=== PATIENT | female | born 1950 | race Caucasian/White ===

== ENCOUNTER 2019-04-24 09:12 | Inpatient (IN) | payer OTHER, BC ==
[2019-04-24] MEDS ORDERED: ACETAMINOPHEN 1000 MG/100 ML VIAL (NON FORMULARY) IVPB ONE ×2 (11:42→13:45)
[2019-04-24] MEDS ORDERED: PROPOFOL 20 ML ONE (11:45)
[2019-04-24] MEDS ORDERED: DEXTROSE 5%-0.45% SALINE 1,000 ML IV SCH (11:45)
[2019-04-24] MEDS ORDERED: IBUPROFEN 800 MG/8 ML IJ IVPB SCH (11:45)
[2019-04-24] MEDS ORDERED: SUCCINYLCHOLINE CHLORIDE 200 MG/10 ML SYRINGE ONE (11:57)
[2019-04-24] MEDS ORDERED: ceFAZolin SODIUM 1 GM VIAL ONE (12:00)
[2019-04-24] MEDS ORDERED: ceFAZolin SODIUM 1 GM VIAL IVPB ONE (12:05)
[2019-04-24] MEDS ORDERED: DEXAMETHASONE SOD PHOSPHATE 4 MG/1 ML VIAL ONE (12:07)
[2019-04-24] MEDS ORDERED: ONDANSETRON 4 MG/2 ML VIAL IVPUSH PRN (13:03)
[2019-04-24] MEDS ORDERED: ALBUTEROL SO4 0.083% IH SOL 2.5 MG/3 ML VIAL.NEB. NEB ONE ×2 (13:04→13:15)
[2019-04-24] MEDS ORDERED: ALBUTEROL SO4 0.083% IH SOL 2.5 MG/3 ML VIAL.NEB. NEB PRN (13:04)
[2019-04-24] MEDS ORDERED: ACETAMINOPHEN INJECTION 100 ML IVPB ONE (13:45)
--- NOTE | 2019-04-24 16:02 | HP ---
CHIEF COMPLAINT: hypoxia PCP: HISTORY OF PRESENT ILLNESS: Patient is a 69 year old female with past medical history of HTN, DM, kidney stones and hypothyroidism, presented today after found to be hypoxic and tachycardic post-operatively. Patient underwent cystoscopy, laser lithotripsy and stent placement today, where it was reported that patient had difficult intubation, and even while intubated, patient was saturating at the low 90s. Post-operatively, patient was still noted to be hypoxic at 85% and tachycardic at the 110s. Patient was given albuterol neb x1 and placed on 3L NC. Patient denies any recent illness. Denies fevers, chills, headache, chest pain, SOB, palpitations, abdominal pain, diarrhea, urinary symptoms. Recent Travel:denies PAST MEDICAL HISTORY: HTN DM Hypothyroidism PAST SURGICAL HISTORY: Cholecystectomy Left breast Lumpectomy Social History: Smoking:previous smoker, around 2-3 sticks per day >40 years, quit 12 years ago Alcohol:denies Drugs: denies Allergies No Known Drug Allergies Allergy (Verified 04/23/19 15:15) SEASONAL Allergy (Uncoded 04/23/19 15:13) HOME MEDICATIONS: Home Medications Medication Instructions Recorded Clindamycin 1% Gel [Cleocin *Gel*] 1 applic TP DAILY 04/23/19 Fluticasone Furoate [Arnuity 50 mcg IH DAILY 04/23/19 Ellipta] Latanoprost 0.005% Eye Drops 1 drop OU HS 04/23/19 [Xalatan 0.005% Eye Drops -] Levothyroxine [Synthroid -] 100 mcg PO DAILY 04/23/19 Lisinopril 20 mg PO DAILY 04/23/19 Metformin HCl [Glucophage] 1,000 mg PO BID 04/23/19 Metoprolol Tartrate 50 mg PO BID 04/23/19 Polyvinyl Alcohol [Tears Again] 15 ml OP DAILY 04/23/19 REVIEW OF SYSTEMS CONSTITUTIONAL: Absent: fever, chills, diaphoresis, generalized weakness, malaise, loss of appetite, weight change HEENT: Absent: rhinorrhea, nasal congestion, throat pain, throat swelling, difficulty swallowing, mouth swelling, ear pain, eye pain, visual changes CARDIOVASCULAR: Absent: chest pain, syncope, palpitations, irregular heart rate, lightheadedness, peripheral edema RESPIRATORY: Absent: cough, shortness of breath, dyspnea with exertion, orthopnea, wheezing, stridor, hemoptysis GASTROINTESTINAL: Absent: abdominal pain, abdominal distension, nausea, vomiting, diarrhea, constipation, melena, hematochezia GENITOURINARY: Absent: dysuria, frequency, urgency, hesitancy, hematuria, flank pain, genital pain MUSCULOSKELETAL: Absent: myalgia, arthralgia, joint swelling, back pain, neck pain SKIN: Absent: rash, itching, pallor HEMATOLOGIC/IMMUNOLOGIC: Absent: easy bleeding, easy bruising, lymphadenopathy, frequent infections ENDOCRINE: Absent: unexplained weight gain, unexplained weight loss, heat intolerance, cold intolerance NEUROLOGIC: Absent: headache, focal weakness or paresthesias, dizziness, unsteady gait, seizure, mental status changes, bladder or bowel incontinence PSYCHIATRIC: Absent: anxiety, depression, suicidal or homicidal ideation, hallucinations. PHYSICAL EXAMINATION Vital Signs - 24 hr 04/24/19 04/24/19 04/24/19 09:51 12:59 13:15 Temperature 97.8 F 98.0 F Pulse Rate 101 H 117 H 120 H Respiratory 14 20 20 Rate Blood Pressure 155/87 128/67 141/66 O2 Sat by Pulse 97 88 L 88 L Oximetry (%) 04/24/19 04/24/19 04/24/19 13:30 13:45 14:00 Temperature Pulse Rate 118 H 113 H 113 H Respiratory 20 20 20 Rate Blood Pressure 128/67 145/68 129/69 O2 Sat by Pulse 90 L 91 L 92 L Oximetry (%) 04/24/19 14:15 Temperature Pulse Rate 111 H Respiratory 16 Rate Blood Pressure 127/65 O2 Sat by Pulse 91 L Oximetry (%) GENERAL: Awake, alert, and fully oriented, on 3L NC HEAD: Normal with no signs of trauma. EYES: PERRLA, EOMI, sclera anicteric, conjunctiva clear. EARS, NOSE, THROAT: Moist mucous membranes. NECK: Normal range of motion, supple LUNGS: +scattered rhonchi bilaterally, +bibasilar crackles HEART: Regular rate and rhythm, normal S1 and S2 ABDOMEN: Soft, nontender, not distended, normoactive bowel sounds. LOWER EXTREMITIES: 2+ pulses, warm, well-perfused. No peripheral edema. NEUROLOGICAL: Cranial nerves II-XII intact. Normal speech. PSYCHIATRIC: Cooperative. Good eye contact. Appropriate mood and affect. SKIN: Warm, dry, normal turgor. Laboratory Results - last 24 hr 04/24/19 04/24/19 09:37 15:23 POC Glucometer 165 211 ASSESSMENT/PLAN: Patient is a 69 year old female with past medical history of HTN, DM, kidney stones and hypothyroidism, presented today after found to be hypoxic and tachycardic post-operatively. #Hypoxia and Tachycardia -unclear etiology at this time, all labs pending -may be 2/2 COPD vs CHF vs PE vs ?aspiration pneumonia -CXR done -will start duonebs standing and PRN -BNP pending -will order echo to assess LV function -Trop to r/o ACS -D-dimer, to r/o PE -Pulmonology (Dr. Mobley) consulted. #Nephrolithiasis -s/p cystoscopy, laser lithotripsy and stent placement, POD 0 -Urology on board -pain control with ibuprofen #HTN -Continue home Lopressor 50mg bid and Lisinopril 20mg daily #DM -Hold home metformin -Insulin sliding scale implemented -BGM ACHS #Hypothyroidism -Continue Synthroid 100mcg daily #FEN -Not on any standing fluids -Routine bmp monitoring -Diabetic diet #Prophylaxis -SCDs #Disposition -full code admit to med surg Visit type - Emergency Visit Emergency Visit: Yes ED Registration Date: 04/24/19 Care time: The patient presented to the Emergency Department on the above date and was hospitalized for further evaluation of their emergent condition. - New Patient This patient is new to me today: Yes Date on this admission: 04/25/19 - Critical Care Critical Care patient: No ATTENDING PHYSICIAN STATEMENT I saw and evaluated the patient. I reviewed the resident's note and discussed the case with the resident. I agree with the resident's findings and plan as documented. SUBJECTIVE: OBJECTIVE: ASSESSMENT AND PLAN:
[2019-04-24] MEDS ORDERED: methylPREDNISolone NA SUCC 40 MG/1 ML VIAL ONE (17:00)
[2019-04-24] MEDS ORDERED: methylPREDNISolone NA SUCC 40 MG/1 ML VIAL IVPUSH ONE (17:09)
[2019-04-24 17:44] LABS: BASO % 0.4 % (0-2.0); HEMATOCRIT 37.9 % (32.4-45.2); LYMPH % 3.4 % (8-40); MCH 26.9 pg (25.7-33.7); MCHC 31.7 g/dl (32.0-36.0); MEAN CELL VOLUME 84.8 fl (80-96); MONO % 1.7 % (3.8-10.2); NEUT % 94.5 % (42.8-82.8); PLATELET COUNT 277 K/MM3 (134-434); RBC 4.47 M/mm3 (3.60-5.2); RDW 15.1 % (11.6-15.6); WHITE BLOOD COUNT 20.2 K/mm3 (4.0-10.0)
[2019-04-24] MEDS ORDERED: FUROSEMIDE 40 MG/4 ML INJECTABLE VIAL IVPUSH ONE (17:49)
[2019-04-24 18:02] LABS: INR 1.03 (0.83-1.09); PROTHROMBIN TIME (PATIENT) 12.1 SEC (9.7-13.0)
[2019-04-24 18:05] LABS: ACTIVATED PTT 29.9 SECONDS (25.2-36.5)
[2019-04-24] MEDS: INSULIN SLIDING SCALE (NOVOLOG) 1 VIAL SQ SCH ×2 (18:10→21:33)
[2019-04-24 18:31] LABS: ALBUMIN 3.6 g/dl (3.4-5.0); ALK PHOS 105 U/L (45-117); ANION GAP 11 MMOL/L (8-16); BILIRUBIN,TOTAL 0.2 mg/dL (0.2-1); BLOOD UREA NITROGEN 21.1 mg/dL (7-18); CALCIUM 9.2 mg/dL (8.5-10.1); CHLORIDE 104 mmol/L (98-107); CO2 22 mmol/L (21-32); CREATININE 1.9 mg/dL (0.55-1.3); GLUCOSE,RANDOM 297 mg/dL (74-106); MAGNESIUM 1.8 mg/dL (1.8-2.4); POTASSIUM 4.2 mmol/L (3.5-5.1); SGOT/AST 15 U/L (15-37); SGPT/ALT 16 U/L (13-61); SODIUM 137 mmol/L (136-145); TOT PROT 8.5 g/dl (6.4-8.2)
[2019-04-24] MEDS ORDERED: HEPARIN NA (PORCINE) 5,000 UNITS/ML 1ML VIAL IVPUSH PRN ×2 (18:55)
[2019-04-24] MEDS ORDERED: HEPARIN INFUSION - 25,000 UNITS/500 ML INFUS.BAG IV SCH (19:00)
[2019-04-24 19:06] LABS: PLATELET ESTIMATE ADEQUATE
--- NOTE | 2019-04-24 19:37 | PN ---
Teaching Attending Note Name of Resident: Magui Werner ATTENDING PHYSICIAN STATEMENT I saw and evaluated the patient. I reviewed the resident's note and discussed the case with the resident. I agree with the resident's findings and plan as documented. SUBJECTIVE:Patient is a 69 year old female with past medical history of HTN, DM , kidney stones and hypothyroidism, presented today after found to be hypoxic and tachycardic post-operatively. Patient underwent cystoscopy, laser lithotripsy and stent placement today, where it was reported that patient had difficult intubation, and even while intubated, patient was saturating at the low 90s. Post-operatively, patient was still noted to be hypoxic at 85% and tachycardic at the 110s. Patient was given albuterol neb x1 and placed on 3L NC. Patient denies any recent illness. Denies fevers, chills, headache, chest pain, SOB, palpitations, abdominal pain, diarrhea, urinary symptoms. OBJECTIVE: appears comfoertable, nad, and sat, is in 90s on 3 L , dec to 80s after taking the oxygen off, heent , wnl, perrla , and eomi, cvs tachycardia, and s1/s2/0 chest ctab abd benign ext no c/c/e neuro non focal, ASSESSMENT AND PLAN: atient is a 69 year old female with past medical history of HTN, DM, kidney stones and hypothyroidism, presented today after found to be hypoxic and tachycardic post-operatively. #Hypoxia cxr shows the mild congestion, and no prior h/o chf, and also tachy cardia, cant do CTA bc of the high creatinine, start heparin drip, bc of high probability of the PE, and high D dimer, get vq scan, will give lasix, and also get echo, -unclear etiology at this time -will start duonebs standing and PRN -BNP -will order echo to assess LV function -D-dimer, r/o PE -Pulmonology (Dr. Mobley) consulted. Nephrolithiasis -s/p cystoscopy, laser lithotripsy and stent placement, POD 0 no bleeding reported, -Urology on board HTN -Continue home Lopressor 50mg bid and Lisinopril 20mg daily DM -Hold home metformin -Insulin sliding scale implemented -BGM ACHS Hypothyroidism -Continue Synthroid 100mcg daily
[2019-04-24] MEDS: ALBUTEROL SO4 2.5/IPRATROPIUM 0.5 INH SOL 3 ML VIAL.NEB. NEB SCH (20:06)
[2019-04-24] MEDS ORDERED: VANCOMYCIN 1 GM in D5W (PRE-DOCKED) 1,000 MG/250 ML IVPB ONE (20:57)
[2019-04-24] MEDS ORDERED: methylPREDNISolone NA SUCC 40 MG/1 ML VIAL IVPUSH SCH (21:00)
[2019-04-24] MEDS: METOPROLOL TARTRATE 50 MG TABLET (FP) PO SCH (21:21)
[2019-04-24] MEDS ORDERED: INSULIN (NOVOLOG) ASPART 100 UNITS/ML 10ML VIAL ONE (21:27)
[2019-04-24] MEDS ORDERED: cefTRIAXone SODIUM 1 GM VIAL ONE (22:15)
[2019-04-24] MEDS: CEFTRIAXONE 1 GM in DEXTROSE 5%-WATER - 50 ML IVPB SCH (22:15)
[2019-04-24] MEDS ORDERED: DEXTROSE 5%-WATER - 50 ML IVPB ONE (22:15)
[2019-04-24] MEDS: LATANOPROST 0.005% OPHTH SOLN 2.5ML BOTTLE OU SCH (22:35)
[2019-04-24] MEDS ORDERED: INSULIN (NOVOLOG) ASPART 100 UNITS/ML 10ML VIAL SQ ONE (23:33)
[2019-04-25] MEDS ORDERED: INSULIN (NOVOLOG) ASPART 100 UNITS/ML 10ML VIAL SQ ONE (01:06)
[2019-04-25] MEDS: INSULIN SLIDING SCALE (NOVOLOG) 1 VIAL SQ SCH ×4 (06:37→21:48)
[2019-04-25] MEDS ORDERED: LEVOTHYROXINE NA 100 MCG TABLET (FP) PO SCH (07:00)
[2019-04-25 07:15] LABS: BASO % 0.3 % (0-2.0); HEMOGLOBIN 11.7 GM/dL (10.7-15.3); LYMPH % 6.4 % (8-40); MCH 26.9 pg (25.7-33.7); MCHC 32.4 g/dl (32.0-36.0); MEAN CELL VOLUME 83.2 fl (80-96); MONO % 3.4 % (3.8-10.2); NEUT % 89.9 % (42.8-82.8); PLATELET COUNT 310 K/MM3 (134-434); RBC 4.33 M/mm3 (3.60-5.2); RDW 15.2 % (11.6-15.6); WHITE BLOOD COUNT 17.2 K/mm3 (4.0-10.0)
[2019-04-25] MEDS: ALBUTEROL SO4 2.5/IPRATROPIUM 0.5 INH SOL 3 ML VIAL.NEB. NEB SCH ×4 (08:00→20:00)
[2019-04-25 08:27] LABS: ALBUMIN 3.4 g/dl (3.4-5.0); BILIRUBIN,TOTAL 0.4 mg/dL (0.2-1); BLOOD UREA NITROGEN 30.2 mg/dL (7-18); CALCIUM 9.4 mg/dL (8.5-10.1); CREATININE 2.1 mg/dL (0.55-1.3); POTASSIUM 4.4 mmol/L (3.5-5.1); TOT PROT 8.4 g/dl (6.4-8.2)
[2019-04-25] MEDS: METOPROLOL TARTRATE 50 MG TABLET (FP) PO SCH ×2 (09:35→21:46)
[2019-04-25] MEDS ORDERED: LISINOPRIL 20 MG TABLET (FP) PO SCH (10:00)
--- NOTE | 2019-04-25 11:54 | EKG ---
Test Reason : Blood Pressure : / mmHG Vent. Rate : 109 BPM Atrial Rate : 109 BPM P-R Int : 204 ms QRS Dur : 090 ms QT Int : 320 ms P-R-T Axes : 059 001 033 degrees QTc Int : 430 ms SINUS TACHYCARDIA OTHERWISE NORMAL ECG NO PREVIOUS ECGS AVAILABLE Confirmed by FELIBERTO NEAL MD ([id number]) on 04/25/2019 11:53:55 AM Referred By: Franc Haines Confirmed By:FELIBERTO NEAL MD
--- NOTE | 2019-04-25 12:16 | OP ---
DATE OF OPERATION: 04/24/2019 PREOPERATIVE DIAGNOSIS: Right distal ureteral calculi and hydronephrosis. POSTOPERATIVE DIAGNOSIS: Right distal ureteral calculi and hydronephrosis. PROCEDURE: Cystoscopy, right retrograde pyelogram, right ureteroscopic laser lithotripsy and right ureteral stent placement. ANESTHESIA: General, Bartolome Sullivan, REF-DO SURGEON: Franc Haines MD ESTIMATED BLOOD LOSS: None. SPECIMENS: None. DRAINS: A 6 x 22 double-J ureteral stent on the right. FINDINGS: Large impacted stones in the intramural right ureter. PREOPERATIVE INDICATIONS: Patient is a 69-year-old female who presents with several weeks of right-sided flank pain. CT scan revealed multiple large obstructing stones in the very distal right ureter. She comes to the OR today for removal of the stones. OPERATION: The patient was brought to the OR, placed on the table in the supine position, given general anesthesia and IV antibiotics and placed in the modified lithotomy position. The groin was prepped and draped sterilely. Cystoscopy was performed. The urethra was normal. The bladder itself was unremarkable. The right UO was visualized. Attempts at passing a guidewire initially were difficult. However, passing a Sensor wire went easily. This was done under fluoroscopic guidance. A 10-Surinamese dual-lumen catheter was used to dilate the ureteral orifice and then a rigid ureteroscope was passed into the right distal ureter. There were several large stones as seen on the CAT scan impacted in the intramural ureter. Using the holmium laser fiber, most of the stones were broken up. The smaller stones were evacuated out. While the ureter remained intact without any injury, visibility did become difficult as the case proceeded. A retrograde pyelogram revealed no extravasation, but there was some proximal dilation as seen on the CAT scan. Over the remaining wire a 6 x 22 double-J ureteral stent was placed. One loop was seen in the upper pole of the kidney, other loop in the bladder. Bladder was emptied. The patient was woken up. FRANC HAINES M.D. [id number]
--- NOTE | 2019-04-25 13:38 | CONSULT ---
Consult Consult Specialty:: Nephrology Reason for Consultation:: CISCO - History of Present Illness Chief Complaint: post op tachycardia History of Present Illness: Pt is a 69 year old female with pmhx of htn, dm, hypothyroidism and nephrolithiasis who presented with post op tachycardia and hypoxia. She had a cystoscopy and laser lithotripsy with stent placement. She says she feels better today. She denies fevers or chills. She was found to have elevated creatinine and I was called to evaluate her. She denies history of CKD. She denies nsaid use. She denies dysuria at the moment. - History Source History Provided By: Patient, Medical Record - Past Medical History Cardio/Vascular: Yes: HTN Renal/: Yes: Renal Calculi ...: No Endocrine: Yes: Diabetes Mellitus - Alcohol/Substance Use Hx Alcohol Use: No - Smoking History Smoking history: Former smoker Have you smoked in the past 12 months: No If you are a former smoker, when did you quit?: 2007 Home Medications - Allergies Allergies/Adverse Reactions: Allergies Allergy/AdvReac Type Severity Reaction Status Date / Time No Known Drug Allergies Allergy Verified 04/23/19 15:15 SEASONAL Allergy Uncoded 04/23/19 15:13 - Home Medications Home Medications: Ambulatory Orders Clindamycin 1% Gel [Cleocin *Gel*] 1 applic TP DAILY 04/23/19 Fluticasone Furoate [Arnuity Ellipta] 50 mcg IH DAILY 04/23/19 Latanoprost 0.005% Eye Drops [Xalatan 0.005% Eye Drops -] 1 drop OU HS 04/23/19 Levothyroxine [Synthroid -] 100 mcg PO DAILY 04/23/19 Lisinopril 20 mg PO DAILY 04/23/19 Metformin HCl [Glucophage] 1,000 mg PO BID 04/23/19 Metoprolol Tartrate 50 mg PO BID 04/23/19 Polyvinyl Alcohol [Tears Again] 15 ml OP DAILY 04/23/19 Family Medical History Family History: Denies Review of Systems - Review of Systems Constitutional: reports: No Symptoms Eyes: reports: No Symptoms HENT: reports: No Symptoms Neck: reports: No Symptoms Cardiovascular: reports: No Symptoms Respiratory: reports: No Symptoms Gastrointestinal: reports: No Symptoms Genitourinary: reports: No Symptoms Musculoskeletal: reports: No Symptoms Integumentary: reports: No Symptoms Neurological: reports: No Symptoms Endocrine: reports: No Symptoms Hematology/Lymphatic: reports: No Symptoms Psychiatric: reports: No Symptoms Physical Exam Vital Signs: Vital Signs Temperature 97.2 F L 04/25/19 10:00 Pulse Rate 88 04/25/19 10:00 Respiratory Rate 22 H 04/25/19 10:00 Blood Pressure 123/68 04/25/19 10:00 O2 Sat by Pulse Oximetry (%) 96 04/24/19 20:30 Constitutional: Yes: Calm Eyes: Yes: Conjunctiva Clear HENT: Yes: Atraumatic Neck: Yes: Supple Cardiovascular: Yes: S1, S2 Respiratory: Yes: CTA Bilaterally Gastrointestinal: Yes: Soft Renal/: Yes: WNL Musculoskeletal: Yes: WNL Edema: No Neurological: Yes: Oriented Psychiatric: Yes: Oriented Labs: CBC, BMP 04/25/19 05:30 04/25/19 05:30 Laboratory Tests 04/24/19 04/24/19 04/25/19 15:55 17:00 05:30 WBC 20.2 H 17.2 H Creatinine 1.9 H 04/25/19 05:30 WBC Creatinine 2.1 H Imaging - Results Chest X-ray: Report Reviewed Problem List - Problems (1) CISCO (acute kidney injury) Code(s): N17.9 - ACUTE KIDNEY FAILURE, UNSPECIFIED (2) HTN (hypertension) Code(s): I10 - ESSENTIAL (PRIMARY) HYPERTENSION Assessment/Plan Current Medications Generic Name Dose Route Start Last Admin Trade Name Freq PRN Reason Stop Dose Admin Albuterol Sulfate 1 amp 04/24/19 13:04 Ventolin 0.083% Nebulizer Soln - NEB Q4H PRN SHORT OF BREATH/WHEEZING Albuterol/Ipratropium 1 amp 04/24/19 16:00 04/25/19 08:00 Duoneb - NEB 1 amp RQID HERNANDEZ Administration Fentanyl 50 mcg 04/24/19 13:03 Sublimaze Injection - IVPUSH [id number] PRN PAIN-PACU ORDER X 4 DOSES ONLY Heparin Sodium (Porcine) 1,000 unit 04/24/19 18:55 Heparin - IVPUSH PRN PRN Heparin Heparin Sodium (Porcine) 5,000 unit 04/24/19 18:55 Heparin - IVPUSH PRN PRN Heparin Heparin Sodium/Dextrose 25,000 units in 500 mls @ 20 mls/hr 04/24/19 19:00 02:53 Heparin Infusion - IV 1,000 units/hr TITR HERNANDEZ 20 mls/hr Titration Protocol 1,000 UNITS/HR Ceftriaxone Sodium 1 gm/ 50 mls @ 100 mls/hr 04/24/19 22:00 04/24/19 22:15 Dextrose IVPB 100 mls/hr HS HERNANDEZ Administration Protocol Insulin Aspart 1 vial 04/24/19 16:30 04/25/19 12:24 Novolog Vial Sliding Scale - SQ 2 units ACHS [facility] Administration Protocol Latanoprost 1 drop 04/24/19 22:00 04/24/19 22:35 Xalatan 0.005% Eye Drops - OU 1 drop HS [facility] Administration Levothyroxine Sodium 100 mcg 04/25/19 07:00 04/25/19 06:37 Synthroid - PO 100 mcg DAILY@0700 HERNANDEZ Administration Lisinopril 20 mg 04/25/19 10:00 04/25/19 09:35 Prinivil PO 20 mg DAILY HERNANDEZ Administration Metoprolol Tartrate 50 mg 04/24/19 22:00 04/25/19 09:35 Lopressor - PO 50 mg BID HERNANDEZ Administration Ondansetron HCl 4 mg 04/24/19 13:03 Zofran Injection IVPUSH Q6H PRN NAUSEA AND/OR VOMITING Microbiology Impression 1. CISCO 2. nephrolithiasis 3. DM 4. hx htn 5. hypothyroidism 6. r/o sepsis Plan - hold lisinopril for now - check ua, urine hand edger and urine sodium to calc fena - check renal ultrasound - start fluids - monitor pulse and vitals
[2019-04-25] MEDS ORDERED: SODIUM CHLORIDE 0.45% 1,000 ML IV SCH ×2 (13:45)
--- NOTE | 2019-04-25 14:18 | CON.PULM ---
Consult Consult Specialty:: PULMONARY Referred by:: Dr Martinez Reason for Consultation:: hypoxia - History of Present Illness Chief Complaint: s/p lithotripsy History of Present Illness: 69yo female with h/o HTN, DM, hypothyroidism, nephrolithiasis who presented electively for cystoscopy/laser lithotripsy/stent placement. Pre-operatively was reportedly a difficult intubation and during the surgery was saturating low 90s. Post op noted to be tachycardic, hypoxic to 85%. Currently denies shortness of breath, chest pain or palpitations. She is a former smoker but denies history of asthma or COPD. Does not use oxygen or inhalers at home. No fevers, chills or sweats. CXR showing bibasilar infiltrates. - History Source History Provided By: Patient, Medical Record Limitations to Obtaining History: No Limitations - Past Medical History Cardio/Vascular: Yes: HTN Renal/: Yes: Renal Calculi ...: No Endocrine: Yes: Diabetes Mellitus - Alcohol/Substance Use Hx Alcohol Use: No - Smoking History Smoking history: Former smoker Have you smoked in the past 12 months: No If you are a former smoker, when did you quit?: 2007 Home Medications - Allergies Allergies/Adverse Reactions: Allergies Allergy/AdvReac Type Severity Reaction Status Date / Time No Known Drug Allergies Allergy Verified 04/23/19 15:15 SEASONAL Allergy Uncoded 04/23/19 15:13 - Home Medications Home Medications: Ambulatory Orders Clindamycin 1% Gel [Cleocin *Gel*] 1 applic TP DAILY 04/23/19 Fluticasone Furoate [Arnuity Ellipta] 50 mcg IH DAILY 04/23/19 Latanoprost 0.005% Eye Drops [Xalatan 0.005% Eye Drops -] 1 drop OU HS 04/23/19 Levothyroxine [Synthroid -] 100 mcg PO DAILY 04/23/19 Lisinopril 20 mg PO DAILY 04/23/19 Metformin HCl [Glucophage] 1,000 mg PO BID 04/23/19 Metoprolol Tartrate 50 mg PO BID 04/23/19 Polyvinyl Alcohol [Tears Again] 15 ml OP DAILY 04/23/19 Review of Systems - Review of Systems Constitutional: denies: Chills, Fever Eyes: denies: Recent Change in Vision HENT: denies: Nasal Congestion, Throat Pain Neck: denies: Stiffness, Tenderness Cardiovascular: denies: Chest Pain, Shortness of Breath Respiratory: reports: Cough. denies: Hemoptysis, Wheezing Gastrointestinal: denies: Abdominal Pain, Nausea, Vomiting Genitourinary: denies: Dysuria, Hematuria Neurological: denies: Dizziness, Headache Endocrine: denies: Unexplained Weight Loss Physical Exam Vital Sings: Vital Signs Temperature 97.2 F L 04/25/19 10:00 Pulse Rate 88 04/25/19 10:00 Respiratory Rate 22 H 04/25/19 10:00 Blood Pressure 123/68 04/25/19 10:00 O2 Sat by Pulse Oximetry (%) 96 04/24/19 20:30 Constitutional: Yes: Calm Eyes: Yes: Conjunctiva Clear, EOM Intact HENT: Yes: Atraumatic, Normocephalic Neck: Yes: Supple, Trachea Midline Cardiovascular: Yes: Regular Rate and Rhythm Respiratory: Yes: Rales, Rhonchi ...Clubbing: No Gastrointestinal: Yes: Normal Bowel Sounds, Soft. No: Tenderness Edema: No Neurological: Yes: Alert, Oriented Labs: CBC, BMP 04/25/19 05:30 04/25/19 05:30 Imaging - Results Chest X-ray: Report Reviewed, Image Reviewed (bibasilar infiltrates) Problem List - Problems (1) Hypoxia Code(s): R09.02 - HYPOXEMIA (2) Pneumonia Code(s): J18.9 - PNEUMONIA, UNSPECIFIED ORGANISM Assessment/Plan Nephrolithiasis s/p Cystoscopy/Laser Lithotripsy/Stent Placement Hypoxia r/o Pneumonia r/o Aspiration Atelectasis Acute vs Chronic Renal Failure HTN DM Hypothyroidism - would start empiric antibiotics - f/u cultures - O2 to keep Spo2 >90% - CT chest noncontrast - incentive spirometry - echocardiogram - LE dopplers - lower suspicion for VTE as pt with abnormal imaging and exam and hypoxia improves with deep breathing - can d/c heparin gtt if echocardiogram and dopplers unremarkable Thank you for this consult Greyson Andrade MD
--- NOTE | 2019-04-25 15:43 | ECHO ---
Name: VITO BAILEY Exam:Adult Echocardiogram Study Date: 04/25/2019 02:45 PM Age: 69 yrs Reason For Study: CHF Height: 59 in Weight: 164 lb BSA: 1.7 m2 MMode/2D Measurements & Calculations IVSd: 1.2 cm Ao root diam: 2.6 cm LVIDd: 3.7 cm LA dimension: 3.0 cm LVIDs: 2.5 cm ACS: 1.3 cm LVPWd: 1.0 cm EDV(Teich): 57.4 ml LVOT diam: 2.0 cm ESV(Teich): 21.3 ml LAV (MOD-bp): 39.0 ml TAPSE: 1.4 cm RV S Honorio: 11.2 cm/sec Doppler Measurements & Calculations MV E max honorio: 61.2 cm/sec Ao V2 max: 134.4 cm/sec MV A max honorio: 130.3 cm/sec Ao max P.2 mmHg MV E/A: 0.47 Ao V2 mean: 89.8 cm/sec MV dec time: 0.24 sec Ao mean P.9 mmHg Ao V2 VTI: 22.5 cm SAMANTHA(I,D): 2.7 cm2 SAMANTHA(V,D): 2.8 cm2 LV V1 max P.9 mmHg SV(LVOT): 60.5 ml LV V1 mean P.3 mmHg LV V1 max: 121.9 cm/sec LV V1 mean: 82.8 cm/sec LV V1 VTI: 19.8 cm TR max honorio: 217.6 cm/sec PA V2 max: 100.4 cm/sec TR max P.0 mmHg PA max P.0 mmHg PA acc slope: 784.0 cm/sec2 PA acc time: 0.10 sec Med Peak E' Honorio: 4.4 cm/sec PA pr(Accel): 36.2 mmHg Med E/e': 14.0 Lat Peak E' Honorio: 5.9 cm/sec Lat E/e': 10.3 Procedure A complete two-dimensional transthoracic echocardiogram was performed (2D, M-mode, Doppler and color flow Doppler). Left Ventricle The left ventricular size, thickness and function are normal. The left ventricular ejection fraction is normal. Ejection Fraction = 60-65%. The left ventricular wall motion is normal. Right Ventricle The right ventricle is normal in size and function. Atria Normal left and right atrial size and function. Mitral Valve There is no mitral regurgitation noted. Tricuspid Valve There is trace tricuspid regurgitation. There was insufficient TR detected to calculate RV systolic p ressure. Aortic Valve No hemodynamically significant valvular aortic stenosis. No aortic regurgitation is present. Pulmonic Valve There is no pulmonic valvular regurgitation. Great Vessels The aortic root is normal size. Pericardium/Pleura There is no pericardial effusion. Interpretation Summary The left ventricular size, thickness and function are normal The right ventricle is normal in size and function. There is trace tricuspid regurgitation. MD Bayron Mercado 04/25/2019 03:42 PM
--- NOTE | 2019-04-25 17:44 | PN ---
Progress Note (short form) - Note Progress Note: feels better no dysuria s/p lithotripsy pulmonary and renal consults appreciated
--- NOTE | 2019-04-25 17:48 | PN ---
Physical Exam: Subjective: Patient examined at bedside, denies complaints, denies SOB/CP. Low suspicion for PE will de-escalate and treat for PNA, VSS. Objective: GENERAL: Awake, alert, and fully oriented, morbidly obese, NAD HEAD: Normal with no signs of trauma. EYES: PERRLA, EOMI, sclera anicteric, conjunctiva clear. EARS, NOSE, THROAT: Moist mucous membranes. NECK: Normal range of motion, supple LUNGS: coarse b/l BS, scattered crackles/rhonchi HEART: Regular rate and rhythm, normal S1 and S2 ABDOMEN: Soft, nontender, obese, normoactive bowel sounds. LOWER EXTREMITIES: 2+ pulses, warm, well-perfused. No peripheral edema. NEUROLOGICAL: Cranial nerves II-XII intact. Normal speech. PSYCHIATRIC: Cooperative. Good eye contact. Appropriate mood and affect. SKIN: Warm, dry, normal turgor. Vital Signs - 24 hr 04/24/19 04/24/19 04/24/19 18:35 18:46 20:30 Temperature Pulse Rate 107 H Respiratory 20 20 Rate Blood Pressure 136/77 O2 Sat by Pulse 96 96 Oximetry (%) 04/24/19 04/25/19 04/25/19 22:00 01:58 06:00 Temperature 97.8 F 97.8 F 97.6 F Pulse Rate 125 H 95 H 94 H Respiratory 20 20 20 Rate Blood Pressure 149/83 117/63 119/65 O2 Sat by Pulse Oximetry (%) 04/25/19 04/25/19 04/25/19 09:00 10:00 14:00 Temperature 97.2 F L 98 F Pulse Rate 88 86 Respiratory 20 22 H 20 Rate Blood Pressure 123/68 118/65 O2 Sat by Pulse 94 L Oximetry (%) Laboratory Results - last 24 hr 04/24/19 04/24/19 04/24/19 15:55 15:58 16:17 WBC RBC Hgb Hct MCV MCH MCHC RDW Plt Count MPV Absolute Neuts (auto) Neutrophils % Neutrophils % (Manual) Band Neutrophils % Lymphocytes % Lymphocytes % (Manual) Monocytes % Monocytes % (Manual) Eosinophils % Basophils % Nucleated RBC % Platelet Estimate Platelet Comment PT with INR INR PTT (Actin FS) D-Dimer 2750 H Sodium 137 Potassium 4.2 Chloride 104 Carbon Dioxide 22 Anion Gap 11 BUN 21.1 H Creatinine 1.9 H Est GFR (CKD-EPI)AfAm 30.64 Est GFR (CKD-EPI)NonAf 26.43 POC Glucometer Random Glucose 297 H Hemoglobin A1c % Calcium 9.2 Magnesium 1.8 Total Bilirubin 0.2 AST 15 ALT 16 Alkaline Phosphatase 105 Troponin I < 0.02 B-Natriuretic Peptide 77.0 Total Protein 8.5 H Albumin 3.6 TSH 04/24/19 04/24/19 04/24/19 17:00 17:00 17:37 WBC 20.2 H RBC 4.47 Hgb 12.0 Hct 37.9 MCV 84.8 MCH 26.9 MCHC 31.7 L RDW 15.1 Plt Count 277 MPV 9.0 Absolute Neuts (auto) 19.1 H Neutrophils % 94.5 H Neutrophils % (Manual) 90.0 H Band Neutrophils % 3.0 Lymphocytes % 3.4 L Lymphocytes % (Manual) 2.0 L Monocytes % 1.7 L Monocytes % (Manual) 3 L Eosinophils % 0.0 Basophils % 0.4 Nucleated RBC % 0 Platelet Estimate Adequate Platelet Comment No clumping noted PT with INR 12.10 INR 1.03 PTT (Actin FS) 29.9 D-Dimer Sodium Potassium Chloride Carbon Dioxide Anion Gap BUN Creatinine Est GFR (CKD-EPI)AfAm Est GFR (CKD-EPI)NonAf POC Glucometer 278 Random Glucose Hemoglobin A1c % Calcium Magnesium Total Bilirubin AST ALT Alkaline Phosphatase Troponin I B-Natriuretic Peptide Total Protein Albumin TSH 04/24/19 04/24/19 04/24/19 21:22 21:40 23:13 WBC RBC Hgb Hct MCV MCH MCHC RDW Plt Count MPV Absolute Neuts (auto) Neutrophils % Neutrophils % (Manual) Band Neutrophils % Lymphocytes % Lymphocytes % (Manual) Monocytes % Monocytes % (Manual) Eosinophils % Basophils % Nucleated RBC % Platelet Estimate Platelet Comment PT with INR INR PTT (Actin FS) D-Dimer Sodium Potassium Chloride Carbon Dioxide Anion Gap BUN Creatinine Est GFR (CKD-EPI)AfAm Est GFR (CKD-EPI)NonAf POC Glucometer 433 468 Random Glucose 451 H* Hemoglobin A1c % Calcium Magnesium Total Bilirubin AST ALT Alkaline Phosphatase Troponin I B-Natriuretic Peptide Total Protein Albumin TSH 04/25/19 04/25/19 04/25/19 00:52 01:00 05:30 WBC 17.2 H RBC 4.33 Hgb 11.7 Hct 36.0 MCV 83.2 MCH 26.9 MCHC 32.4 RDW 15.2 Plt Count 310 MPV 9.0 Absolute Neuts (auto) 15.5 H Neutrophils % 89.9 H Neutrophils % (Manual) Band Neutrophils % Lymphocytes % 6.4 L D Lymphocytes % (Manual) Monocytes % 3.4 L D Monocytes % (Manual) Eosinophils % 0.0 Basophils % 0.3 Nucleated RBC % 0 Platelet Estimate Platelet Comment PT with INR INR PTT (Actin FS) 53.6 H D-Dimer Sodium Potassium Chloride Carbon Dioxide Anion Gap BUN Creatinine Est GFR (CKD-EPI)AfAm Est GFR (CKD-EPI)NonAf POC Glucometer 399 Random Glucose Hemoglobin A1c % Calcium Magnesium Total Bilirubin AST ALT Alkaline Phosphatase Troponin I B-Natriuretic Peptide Total Protein Albumin TSH 04/25/19 04/25/19 04/25/19 05:30 05:30 05:30 WBC RBC Hgb Hct MCV MCH MCHC RDW Plt Count MPV Absolute Neuts (auto) Neutrophils % Neutrophils % (Manual) Band Neutrophils % Lymphocytes % Lymphocytes % (Manual) Monocytes % Monocytes % (Manual) Eosinophils % Basophils % Nucleated RBC % Platelet Estimate Platelet Comment PT with INR INR PTT (Actin FS) 63.2 H D-Dimer Sodium 136 Potassium 4.4 Chloride 105 Carbon Dioxide 20 L Anion Gap 12 BUN 30.2 H Creatinine 2.1 H Est GFR (CKD-EPI)AfAm 27.15 Est GFR (CKD-EPI)NonAf 23.42 POC Glucometer Random Glucose 234 H Hemoglobin A1c % 7.8 H Calcium 9.4 Magnesium 2.0 Total Bilirubin 0.4 AST 12 L ALT 14 Alkaline Phosphatase 95 Troponin I B-Natriuretic Peptide Total Protein 8.4 H Albumin 3.4 TSH 0.30 L 04/25/19 04/25/19 06:10 11:09 WBC RBC Hgb Hct MCV MCH MCHC RDW Plt Count MPV Absolute Neuts (auto) Neutrophils % Neutrophils % (Manual) Band Neutrophils % Lymphocytes % Lymphocytes % (Manual) Monocytes % Monocytes % (Manual) Eosinophils % Basophils % Nucleated RBC % Platelet Estimate Platelet Comment PT with INR INR PTT (Actin FS) D-Dimer Sodium Potassium Chloride Carbon Dioxide Anion Gap BUN Creatinine Est GFR (CKD-EPI)AfAm Est GFR (CKD-EPI)NonAf POC Glucometer 234 210 Random Glucose Hemoglobin A1c % Calcium Magnesium Total Bilirubin AST ALT Alkaline Phosphatase Troponin I B-Natriuretic Peptide Total Protein Albumin TSH Home Medications Medication Instructions Recorded Clindamycin 1% Gel [Cleocin *Gel*] 1 applic TP DAILY 04/23/19 Fluticasone Furoate [Arnuity 50 mcg IH DAILY 04/23/19 Ellipta] Latanoprost 0.005% Eye Drops 1 drop OU HS 04/23/19 [Xalatan 0.005% Eye Drops -] Levothyroxine [Synthroid -] 100 mcg PO DAILY 04/23/19 Lisinopril 20 mg PO DAILY 04/23/19 Metformin HCl [Glucophage] 1,000 mg PO BID 04/23/19 Metoprolol Tartrate 50 mg PO BID 04/23/19 Polyvinyl Alcohol [Tears Again] 15 ml OP DAILY 04/23/19 Current Medications Generic Name Dose Route Start Last Admin Trade Name Freq PRN Reason Stop Dose Admin Albuterol Sulfate 1 amp 04/24/19 13:04 Ventolin 0.083% Nebulizer Soln - NEB Q4H PRN SHORT OF BREATH/WHEEZING Albuterol/Ipratropium 1 amp 04/24/19 16:00 04/25/19 16:00 Duoneb - NEB 1 amp RQID HERNANDEZ Administration Heparin Sodium (Porcine) 5,000 unit 04/25/19 22:00 Heparin - SQ TID HERNANDEZ Ceftriaxone Sodium 1 gm/ 50 mls @ 100 mls/hr 04/24/19 22:00 04/24/19 22:15 Dextrose IVPB 100 mls/hr HS HERNANDEZ Administration Protocol Sodium Chloride 1,000 mls @ 50 mls/hr 04/25/19 13:45 1/2 Normal Saline IV ASDIR HERNANDEZ Azithromycin 500 mg/ Dextrose 250 mls @ 250 mls/hr 04/25/19 17:45 IVPB DAILY HERNANDEZ Insulin Aspart 1 vial 04/24/19 16:30 04/25/19 12:24 Novolog Vial Sliding Scale - SQ 2 units ACHS HERNANDEZ Administration Protocol Latanoprost 1 drop 04/24/19 22:00 04/24/19 22:35 Xalatan 0.005% Eye Drops - OU 1 drop HS HERNANDEZ Administration Levothyroxine Sodium 100 mcg 04/25/19 07:00 04/25/19 06:37 Synthroid - PO 100 mcg DAILY@0700 HERNANDEZ Administration Metoprolol Tartrate 50 mg 04/24/19 22:00 04/25/19 09:35 Lopressor - PO 50 mg BID HERNANDEZ Administration 69 F h/o HTN, T2DM, morbid obesity, kidney stones and hypothyroidism, presented today after found to be hypoxic and tachycardic post-op w/ ESWL. Hypoxia, intermittent tachycardia likely 2/2 bibasilar atelectasis/infiltrates (O2 sat improves with patient coughing and taking deep breaths, less likely PE) Echo/LE doppler unremarkable, DC Heparin gtt, IV abx w/ Ceftriaxone/Azithro for CAP, RSV/FLU/Legionella O2 PRN to keep O2 >92%, chest physiotherapy/spirometry, HOB elevation Pulmonology (Dr. Mobley) consulted. Nephrolithiasis s/p cystoscopy, laser lithotripsy and stent placement, POD 1 Urology on board HTN Continue home Lopressor 50mg bid and Lisinopril 20mg daily T2DM ISS, FS monitoring, basal insulin PRN Hypothyroidism Continue Synthroid 100mcg daily DVT ppx: Heparin SC Full code Tele monitoring Visit type - Emergency Visit Emergency Visit: Yes ED Registration Date: 04/24/19 Care time: The patient presented to the Emergency Department on the above date and was hospitalized for further evaluation of their emergent condition. - New Patient This patient is new to me today: Yes Date on this admission: 04/25/19 - Critical Care Critical Care patient: No - Discharge Referral Referred to [facility] Med P.C.: No
[2019-04-25] MEDS: AZITHROMYCIN IVPB 500 MG/250 ML BAG IVPB SCH (18:31)
[2019-04-25] MEDS ORDERED: DEXTROSE 5%-WATER - 50 ML IVPB ONE (21:24)
[2019-04-25] MEDS ORDERED: cefTRIAXone SODIUM 1 GM VIAL ONE (21:24)
[2019-04-25] MEDS: HEPARIN NA (PORCINE) 5,000 UNITS/ML 1ML VIAL SQ SCH (21:45)
[2019-04-25] MEDS: CEFTRIAXONE 1 GM in DEXTROSE 5%-WATER - 50 ML IVPB SCH (21:48)
[2019-04-25] MEDS: LATANOPROST 0.005% OPHTH SOLN 2.5ML BOTTLE OU SCH (21:51)
[2019-04-25] MEDS ORDERED: ALBUTEROL SO4 0.083% IH SOL 2.5 MG/3 ML VIAL.NEB. NEB PRN (23:52)
[2019-04-25] MEDS ORDERED: HEPARIN NA (PORCINE) 5,000 UNITS/ML 1ML VIAL IVPUSH PRN ×2 (23:52)
[2019-04-25] MEDS ORDERED: ACETAMINOPHEN 1000 MG/100 ML VIAL (NON FORMULARY) IVPB ONE (23:52)
[2019-04-26 00:07] LABS: URINE APPEARANCE Clear; URINE BILIRUBIN Negative (NEGATIVE); URINE COLOR Yellow; URINE GLUCOSE (UA) Negative (NEGATIVE); URINE KETONE Negative (NEGATIVE); URINE LEUK ESTERASE 2+ (NEGATIVE); URINE NITRITE Negative (NEGATIVE); URINE PROTEIN 2+ (NEGATIVE); URINE UROBILINOGEN 0.2 mg/dL (0.2-1.0)
[2019-04-26 00:23] LABS: EPI CELLS 3 /HPF (0-5/HPF); URINE BACTERIA 25 /hpf (NEGATIVE); URINE RBC 530 /hpf (0-4); URINE WBC 56 /hpf (0-5)
[2019-04-26] MEDS: HEPARIN NA (PORCINE) 5,000 UNITS/ML 1ML VIAL SQ SCH ×3 (05:59→21:45)
[2019-04-26] MEDS: INSULIN SLIDING SCALE (NOVOLOG) 1 VIAL SQ SCH ×4 (05:59→22:15)
[2019-04-26] MEDS: LEVOTHYROXINE NA 100 MCG TABLET (FP) PO SCH (06:00)
[2019-04-26] MEDS: ALBUTEROL SO4 2.5/IPRATROPIUM 0.5 INH SOL 3 ML VIAL.NEB. NEB SCH ×4 (07:48→20:08)
[2019-04-26 08:05] LABS: BASO % 0.6 % (0-2.0); EOS % 0.9 % (0-4.5); HEMATOCRIT 32.9 % (32.4-45.2); HEMOGLOBIN 10.8 GM/dL (10.7-15.3); LYMPH % 24.6 % (8-40); MCH 27.4 pg (25.7-33.7); MCHC 32.7 g/dl (32.0-36.0); MEAN CELL VOLUME 83.9 fl (80-96); MEAN PLT VOLUME 8.8 fl (7.5-11.1); MONO % 4.6 % (3.8-10.2); NEUT % 69.3 % (42.8-82.8); PLATELET COUNT 281 K/MM3 (134-434); RBC 3.92 M/mm3 (3.60-5.2); RDW 15.3 % (11.6-15.6); WHITE BLOOD COUNT 16.5 K/mm3 (4.0-10.0)
[2019-04-26 08:41] LABS: ALBUMIN 3.2 g/dl (3.4-5.0); BILIRUBIN,TOTAL 0.3 mg/dL (0.2-1); BLOOD UREA NITROGEN 38.4 mg/dL (7-18); CALCIUM 8.9 mg/dL (8.5-10.1); CREATININE 1.8 mg/dL (0.55-1.3); POTASSIUM 4.4 mmol/L (3.5-5.1); TOT PROT 7.8 g/dl (6.4-8.2)
[2019-04-26] MEDS: METOPROLOL TARTRATE 50 MG TABLET (FP) PO SCH ×2 (10:02→21:45)
[2019-04-26] MEDS: AZITHROMYCIN IVPB 500 MG/250 ML BAG IVPB SCH (10:02)
[2019-04-26 10:53] LABS: HEMATOCRIT 33.9 % (32.4-45.2); HEMOGLOBIN 11.1 GM/dL (10.7-15.3); MCH 27.5 pg (25.7-33.7); MCHC 32.8 g/dl (32.0-36.0); MEAN CELL VOLUME 83.8 fl (80-96); MEAN PLT VOLUME 8.2 fl (7.5-11.1); PLATELET COUNT 268 K/MM3 (134-434); RBC 4.05 M/mm3 (3.60-5.2); RDW 15.4 % (11.6-15.6); WHITE BLOOD COUNT 14.6 K/mm3 (4.0-10.0)
--- NOTE | 2019-04-26 11:30 | PN ---
Progress Note, Physician History of Present Illness: PULMONARY ALERT,COMFORTABLE,-C/O SOB - Current Medication List Current Medications: Active Medications Albuterol Sulfate (Ventolin 0.083% Nebulizer Soln -) 1 amp NEB Q4H PRN PRN Reason: SHORT OF BREATH/WHEEZING Albuterol/Ipratropium (Duoneb -) 1 amp NEB RQID [facility] Last Admin: 04/26/19 07:48 Dose: 1 amp Heparin Sodium (Porcine) (Heparin -) 5,000 unit SQ TID [facility] Last Admin: 04/26/19 05:59 Dose: 5,000 unit Ceftriaxone Sodium 1 gm/ (Dextrose) 50 mls @ 100 mls/hr IVPB HS [facility]; Protocol Last Admin: 04/25/19 21:48 Dose: 100 mls/hr Sodium Chloride (1/2 Normal Saline) 1,000 mls @ 50 mls/hr IV ASDIR [facility] Last Admin: 04/25/19 18:28 Dose: 50 mls/hr Azithromycin (Zithromax 500mg Ivpb (Pre-Docked)) 500 mg in 250 mls @ 250 mls/ hr IVPB DAILY [facility] Last Admin: 04/26/19 10:02 Dose: 250 mls/hr Insulin Aspart (Novolog Vial Sliding Scale -) 1 vial SQ ACHS [facility]; Protocol Last Admin: 04/26/19 05:59 Dose: Not Given Latanoprost (Xalatan 0.005% Eye Drops -) 1 drop OU [facility] Levothyroxine Sodium (Synthroid -) 100 mcg PO DAILY@0700 [facility] Last Admin: 04/26/19 06:00 Dose: 100 mcg Metoprolol Tartrate (Lopressor -) 50 mg PO BID [facility] Last Admin: 04/26/19 10:02 Dose: 50 mg - Objective Vital Signs: Vital Signs Temperature 97.8 F 04/26/19 06:00 Pulse Rate 112 H 04/26/19 10:15 Respiratory Rate 18 04/26/19 06:00 Blood Pressure 110/61 04/26/19 06:00 O2 Sat by Pulse Oximetry (%) 93 L 04/26/19 10:15 Constitutional: Yes: Well Nourished, Calm Eyes: Yes: WNL HENT: Yes: WNL Neck: Yes: WNL Cardiovascular: Yes: Regular Rate and Rhythm, S1, S2 Respiratory: Yes: Rales (BILATERAL CRACKLES) Gastrointestinal: Yes: Normal Bowel Sounds, Soft Extremities: Yes: WNL Edema: No Labs: CBC, BMP 04/26/19 10:46 04/26/19 05:44 INR, PTT INR 1.03 (0.83-1.09) 04/24/19 17:00 Problem List - Problems (1) CISCO (acute kidney injury) Code(s): N17.9 - ACUTE KIDNEY FAILURE, UNSPECIFIED (2) HTN (hypertension) Code(s): I10 - ESSENTIAL (PRIMARY) HYPERTENSION (3) Pneumonia Code(s): J18.9 - PNEUMONIA, UNSPECIFIED ORGANISM Assessment/Plan Problem List - Problems (1) Hypoxia Code(s): R09.02 - HYPOXEMIA (2) Pneumonia Code(s): J18.9 - PNEUMONIA, UNSPECIFIED ORGANISM Assessment/Plan Nephrolithiasis s/p Cystoscopy/Laser Lithotripsy/Stent Placement Hypoxia r/o Pneumonia r/o Aspiration Atelectasis Acute vs Chronic Renal Failure HTN DM Hypothyroidism - empiric antibiotics - O2 to keep Spo2 >90% - incentive spirometry DR BONDS
--- NOTE | 2019-04-26 11:40 | PN ---
Progress Note (short form) - Note Progress Note: Patient is comfortable has no shortness of breath has no fever status post lithotripsy. Vital Signs Period Temp Pulse Resp BP Sys/Palacio Pulse Ox Last 24 Hr 97.5 F-98.8 F 73-112 18-20 110-136/61-73 90-96 Head no headache no dizziness Ear nose throat no epistaxis Cardiovascular no chest pain Pulmonary no wheezing no coughing GI no abdominal pain Endocrine no history of diabetes hypothyroidism Neuro no history of stroke Dermatology no history of stroke Locomotor no history of joint pain Rest of review of systems are negative Patient is comfortable HEENT normal Neck supple no JVD Lungs Bilateral rales in the lungs more pronounced in the bases up to mid lung Abdomen nontender no organomegaly bowel sounds normal Extremities no edema no cyanosis normal pulses Neurologically he is alert awake oriented, nonfocal Skin no rash noted Chest CAT scan done yesterday shows impression as follows a patchy consolidation within both lungs most pronounced within the left lower lobe there is suspicion diffuse pneumonitis clinical correlation and follow-up recommended. Assessment and plan 69 F h/o HTN, T2DM, morbid obesity, kidney stones and hypothyroidism, presented today after found to be hypoxic and tachycardic post-op w/ ESWL. Hypoxemia with lung pneumonitis. Seen by pulmonary today advised to continue antibiotic and also nebulizer treatment. Will do pre-and post oxygen level for possible home oxygen. Hypertension type 2 diabetes hypothyroidism and also kidney stone he is stable continue same medications. Visit type - Emergency Visit Emergency Visit: Yes ED Registration Date: 04/24/19 Care time: The patient presented to the Emergency Department on the above date and was hospitalized for further evaluation of their emergent condition. - New Patient This patient is new to me today: Yes Date on this admission: 04/26/19 - Critical Care Critical Care patient: No - Discharge Referral Referred to [facility] Med P.C.: No
--- NOTE | 2019-04-26 12:11 | PN ---
Progress Note, Physician History of Present Illness: Pt seen and examined at bedside. She is awake and alert. She is eager to go home. - Current Medication List Current Medications: Active Medications Albuterol Sulfate (Ventolin 0.083% Nebulizer Soln -) 1 amp NEB Q4H PRN PRN Reason: SHORT OF BREATH/WHEEZING Albuterol/Ipratropium (Duoneb -) 1 amp NEB RQID [facility] Last Admin: 04/26/19 07:48 Dose: 1 amp Heparin Sodium (Porcine) (Heparin -) 5,000 unit SQ TID [facility] Last Admin: 04/26/19 05:59 Dose: 5,000 unit Ceftriaxone Sodium 1 gm/ (Dextrose) 50 mls @ 100 mls/hr IVPB [facility]; Protocol Last Admin: 04/25/19 21:48 Dose: 100 mls/hr Sodium Chloride (1/2 Normal Saline) 1,000 mls @ 50 mls/hr IV ASDIR [facility] Last Admin: 04/25/19 18:28 Dose: 50 mls/hr Azithromycin (Zithromax 500mg Ivpb (Pre-Docked)) 500 mg in 250 mls @ 250 mls/ hr IVPB DAILY [facility] Last Admin: 04/26/19 10:02 Dose: 250 mls/hr Insulin Aspart (Novolog Vial Sliding Scale -) 1 vial SQ ACHS [facility]; Protocol Last Admin: 04/26/19 05:59 Dose: Not Given Latanoprost (Xalatan 0.005% Eye Drops -) 1 drop OU [facility] Levothyroxine Sodium (Synthroid -) 100 mcg PO DAILY@0700 [facility] Last Admin: 04/26/19 06:00 Dose: 100 mcg Metoprolol Tartrate (Lopressor -) 50 mg PO BID [facility] Last Admin: 04/26/19 10:02 Dose: 50 mg - Objective Vital Signs: Vital Signs Temperature 97.8 F 04/26/19 06:00 Pulse Rate 112 H 04/26/19 10:15 Respiratory Rate 18 04/26/19 06:00 Blood Pressure 110/61 04/26/19 06:00 O2 Sat by Pulse Oximetry (%) 93 L 04/26/19 10:15 Constitutional: Yes: Calm Eyes: Yes: Conjunctiva Clear HENT: Yes: Atraumatic Neck: Yes: Supple Cardiovascular: Yes: S1, S2 Respiratory: Yes: CTA Bilaterally Gastrointestinal: Yes: Normal Bowel Sounds, Soft Genitourinary: Yes: WNL Musculoskeletal: Yes: WNL Edema: No Neurological: Yes: Oriented Psychiatric: Yes: Oriented Labs: CBC, BMP 04/26/19 10:46 04/26/19 05:44 INR, PTT INR 1.03 (0.83-1.09) 04/24/19 17:00 Problem List - Problems (1) CISCO (acute kidney injury) Code(s): N17.9 - ACUTE KIDNEY FAILURE, UNSPECIFIED (2) HTN (hypertension) Code(s): I10 - ESSENTIAL (PRIMARY) HYPERTENSION Assessment/Plan Current Medications Generic Name Dose Route Start Last Admin Trade Name Freq PRN Reason Stop Dose Admin Albuterol Sulfate 1 amp 04/25/19 23:52 Ventolin 0.083% Nebulizer Soln - NEB Q4H PRN SHORT OF BREATH/WHEEZING Albuterol/Ipratropium 1 amp 04/26/19 08:00 04/26/19 07:48 Duoneb - NEB 1 amp RQID HERNANDEZ Administration Heparin Sodium (Porcine) 5,000 unit 04/25/19 22:00 04/26/19 05:59 Heparin - SQ 5,000 unit TID HERNANDEZ Administration Ceftriaxone Sodium 1 gm/ 50 mls @ 100 mls/hr 04/24/19 22:00 04/25/19 21:48 Dextrose IVPB 100 mls/hr HS HERNANDEZ Administration Protocol Sodium Chloride 1,000 mls @ 50 mls/hr 04/25/19 13:45 04/25/19 18:28 1/2 Normal Saline IV 50 mls/hr ASDIR HERNANDEZ Administration Azithromycin 500 mg in 250 mls @ 250 mls/hr 04/25/19 17:45 04/26/19 10:02 Zithromax 500mg Ivpb (Pre-Docked) IVPB 250 mls/hr DAILY HERNANDEZ Administration Insulin Aspart 1 vial 04/26/19 07:00 04/26/19 05:59 Novolog Vial Sliding Scale - SQ Not Given ACHS HERNANDEZ Protocol Latanoprost 1 drop 04/26/19 22:00 Xalatan 0.005% Eye Drops - OU HS HERNANDEZ Levothyroxine Sodium 100 mcg 04/26/19 07:00 04/26/19 06:00 Synthroid - PO 100 mcg DAILY@0700 HERNANDEZ Administration Metoprolol Tartrate 50 mg 04/26/19 10:00 04/26/19 10:02 Lopressor - PO 50 mg BID HERNANDEZ Administration Microbiology 04/24/19 21:00 Blood - Peripheral Venous Blood Culture - Preliminary NO GROWTH OBTAINED AFTER 24 HOURS, INCUBATION TO CONTINUE FOR 4 DAYS. 04/24/19 20:40 Blood - Peripheral Venous Blood Culture - Preliminary NO GROWTH OBTAINED AFTER 24 HOURS, INCUBATION TO CONTINUE FOR 4 DAYS. Impression 1. CISCO 2. nephrolithiasis 3. DM 4. hx htn 5. hypothyroidism 6. r/o sepsis Plan - renal function improving - decrease rate of fluid and stop this evening - repeat labs in am - ct reviewed, pt denies shortness of breath - renal ultrasound reviewed, urology follow up
[2019-04-26] MEDS ORDERED: SODIUM CHLORIDE 0.45% 1,000 ML IV SCH (12:12)
--- NOTE | 2019-04-26 15:58 | PN ---
Progress Note (short form) - Note Progress Note: S/P ureteroscopic laser litho with post operative pneumonia. will order a KUB for stone burden and stent positioning
[2019-04-26 16:27] VITALS: BMI 33.3
[2019-04-26] MEDS ORDERED: DEXTROSE 5%-WATER - 50 ML IVPB ONE (21:39)
[2019-04-26] MEDS ORDERED: cefTRIAXone SODIUM 1 GM VIAL ONE (21:39)
[2019-04-26] MEDS: CEFTRIAXONE 1 GM in DEXTROSE 5%-WATER - 50 ML IVPB SCH (21:45)
[2019-04-26] MEDS: LATANOPROST 0.005% OPHTH SOLN 2.5ML BOTTLE OU SCH (22:51)
[2019-04-27] MEDS: INSULIN SLIDING SCALE (NOVOLOG) 1 VIAL SQ SCH ×4 (06:15→21:31)
[2019-04-27] MEDS: LEVOTHYROXINE NA 100 MCG TABLET (FP) PO SCH (06:58)
[2019-04-27] MEDS: HEPARIN NA (PORCINE) 5,000 UNITS/ML 1ML VIAL SQ SCH ×3 (06:58→21:13)
[2019-04-27 07:24] LABS: ALBUMIN 3.4 g/dl (3.4-5.0); BILIRUBIN,TOTAL 0.7 mg/dL (0.2-1); BLOOD UREA NITROGEN 36.6 mg/dL (7-18); CALCIUM 8.9 mg/dL (8.5-10.1); CREATININE 1.8 mg/dL (0.55-1.3); POTASSIUM 4.6 mmol/L (3.5-5.1)
[2019-04-27] MEDS: ALBUTEROL SO4 2.5/IPRATROPIUM 0.5 INH SOL 3 ML VIAL.NEB. NEB SCH ×4 (07:44→20:15)
[2019-04-27] MEDS: METOPROLOL TARTRATE 50 MG TABLET (FP) PO SCH ×2 (09:43→21:13)
[2019-04-27] MEDS: AZITHROMYCIN IVPB 500 MG/250 ML BAG IVPB SCH (09:43)
--- NOTE | 2019-04-27 11:12 | PN ---
Progress Note (short form) - Note Progress Note: She is much better today denies any shortness of breath no coughing getting IV antibiotic for pneumonitis. Seen by pulmonary yesterday and recommended to continue IV antibiotics. Vital Signs Period Temp Pulse Resp BP Sys/Palacio Pulse Ox Last 24 Hr 97.6 F-98.4 F 80-97 20-20 114-140/60-89 93-93 Head no headache no dizziness Ear nose throat no epistaxis Cardiovascular no chest pain Pulmonary no wheezing no coughing GI no abdominal pain Endocrine no history of diabetes hypothyroidism Neuro no history of stroke Dermatology no history of stroke Locomotor no history of joint pain Rest of review of systems are negative Patient is comfortable HEENT normal Neck supple no JVD Lungs Bilateral rales in the lungs more pronounced in the bases up to mid lung Abdomen nontender no organomegaly bowel sounds normal Extremities no edema no cyanosis normal pulses Neurologically he is alert awake oriented, nonfocal Skin no rash noted CBC, BMP 04/27/19 06:15 04/27/19 06:15 Chest CAT scan done yesterday shows impression as follows a patchy consolidation within both lungs most pronounced within the left lower lobe there is suspicion diffuse pneumonitis clinical correlation and follow-up recommended. Assessment and plan 69 F h/o HTN, T2DM, morbid obesity, kidney stones and hypothyroidism, presented today after found to be hypoxic and tachycardic post-op w/ ESWL. Hypoxemia with lung pneumonitis. Seen by pulmonary today advised to continue antibiotic and also nebulizer treatment. Pre-and post oxygen level did not require she need home oxygen. Hypertension type 2 diabetes hypothyroidism and also kidney stone he is stable continue same medications. Visit type - Emergency Visit Emergency Visit: Yes ED Registration Date: 04/24/19 Care time: The patient presented to the Emergency Department on the above date and was hospitalized for further evaluation of their emergent condition. - New Patient This patient is new to me today: No - Critical Care Critical Care patient: No - Discharge Referral Referred to [facility] Med P.C.: No
[2019-04-27] MEDS ORDERED: BENZOCAINE/MENTH/CETYLPYRD CL 1 EACH LOZENGE MM PRN (15:09)
--- NOTE | 2019-04-27 15:09 | PN ---
Progress Note (short form) - Note Progress Note: Reports sore throat and cough. No CP and less SOB. No acute events overnight. Intake & Output 04/24/19 04/25/19 04/26/19 04/27/19 23:59 23:59 23:59 23:59 Intake Total 1430 550 900 Output Total 1200 Balance 230 550 900 Weight 164 lb 6 oz 164 lb 4 oz 165 lb 164 lb Last Vital Signs Temp Pulse Resp BP Pulse Ox 98.3 F 88 20 121/65 93 L 04/27/19 14:00 04/27/19 14:00 04/27/19 09:55 04/27/19 14:00 04/27/19 09:00 Active Medications Albuterol Sulfate (Ventolin 0.083% Nebulizer Soln -) 1 amp NEB Q4H PRN PRN Reason: SHORT OF BREATH/WHEEZING Albuterol/Ipratropium (Duoneb -) 1 amp NEB RQID [facility] Last Admin: 04/27/19 11:47 Dose: 1 amp Heparin Sodium (Porcine) (Heparin -) 5,000 unit SQ TID [facility] Last Admin: 04/27/19 14:48 Dose: 5,000 unit Ceftriaxone Sodium 1 gm/ (Dextrose) 50 mls @ 100 mls/hr IVPB HS [facility]; Protocol Last Admin: 04/26/19 21:45 Dose: 100 mls/hr Azithromycin (Zithromax 500mg Ivpb (Pre-Docked)) 500 mg in 250 mls @ 250 mls/ hr IVPB DAILY [facility] Last Admin: 04/27/19 09:43 Dose: 250 mls/hr Insulin Aspart (Novolog Vial Sliding Scale -) 1 vial SQ ACHS [facility]; Protocol Last Admin: 04/27/19 11:01 Dose: 4 units Latanoprost (Xalatan 0.005% Eye Drops -) 1 drop OU HS [facility] Last Admin: 04/26/19 22:51 Dose: 1 drop Levothyroxine Sodium (Synthroid -) 100 mcg PO DAILY@0700 [facility] Last Admin: 04/27/19 06:58 Dose: 100 mcg Metoprolol Tartrate (Lopressor -) 50 mg PO BID [facility] Last Admin: 04/27/19 09:43 Dose: 50 mg Constitutional: Yes: NAD Eyes: Yes: WNL HENT: Yes: WNL Neck: Yes: WNL Cardiovascular: Yes: Regular Rate and Rhythm, S1, S2 Respiratory: Yes: Scattered bilateral rhonchi Gastrointestinal: Yes: Normal Bowel Sounds, Soft Extremities: Yes: WNL Edema: No Labs: Laboratory Results - last 24 hr 04/26/19 04/26/19 04/27/19 17:36 22:08 06:10 WBC RBC Hgb Hct MCV MCH MCHC RDW Plt Count MPV PTT (Actin FS) Sodium Potassium Chloride Carbon Dioxide Anion Gap BUN Creatinine Est GFR (CKD-EPI)AfAm Est GFR (CKD-EPI)NonAf POC Glucometer 143 188 151 Random Glucose Calcium Total Bilirubin AST ALT Alkaline Phosphatase Total Protein Albumin 04/27/19 04/27/19 04/27/19 06:15 06:15 06:15 WBC 10.9 H RBC 4.11 Hgb 11.4 Hct 34.9 MCV 84.8 MCH 27.8 MCHC 32.7 RDW 15.6 Plt Count 272 MPV 8.8 PTT (Actin FS) 32.4 Sodium 138 Potassium 4.6 Chloride 106 Carbon Dioxide 27 Anion Gap 5 L BUN 36.6 H Creatinine 1.8 H Est GFR (CKD-EPI)AfAm 32.71 Est GFR (CKD-EPI)NonAf 28.22 POC Glucometer Random Glucose 148 H Calcium 8.9 Total Bilirubin 0.7 AST 12 L ALT 13 Alkaline Phosphatase 85 Total Protein 8.0 Albumin 3.4 04/27/19 10:59 WBC RBC Hgb Hct MCV MCH MCHC RDW Plt Count MPV PTT (Actin FS) Sodium Potassium Chloride Carbon Dioxide Anion Gap BUN Creatinine Est GFR (CKD-EPI)AfAm Est GFR (CKD-EPI)NonAf POC Glucometer 271 Random Glucose Calcium Total Bilirubin AST ALT Alkaline Phosphatase Total Protein Albumin Problem List - Problems (1) CISCO (acute kidney injury) Code(s): N17.9 - ACUTE KIDNEY FAILURE, UNSPECIFIED (2) HTN (hypertension) Code(s): I10 - ESSENTIAL (PRIMARY) HYPERTENSION (3) Pneumonia Code(s): J18.9 - PNEUMONIA, UNSPECIFIED ORGANISM Assessment/Plan Problem List - Problems (1) Hypoxia Code(s): R09.02 - HYPOXEMIA (2) Pneumonia Code(s): J18.9 - PNEUMONIA, UNSPECIFIED ORGANISM Assessment/Plan Nephrolithiasis s/p Cystoscopy/Laser Lithotripsy/Stent Placement Hypoxia r/o Pneumonia r/o Aspiration Atelectasis Acute vs Chronic Renal Failure HTN DM Hypothyroidism - empiric antibiotics - O2 to keep Spo2 >90% - incentive spirometry - Cough suppressant - Cepacol Dr Mobley
--- NOTE | 2019-04-27 15:17 | PN ---
Progress Note (short form) - Note Progress Note: Renal follow up for [facility] coverage for Dr. Renee Seen and examined at the bedside no acute complaints no sob, cp, abd pain, N/V/D making urine no flank pain Vital Signs Temperature 98.3 F 04/27/19 14:00 Pulse Rate 88 04/27/19 14:00 Respiratory Rate 04/27/19 09:55 Blood Pressure 121/65 04/27/19 14:00 O2 Sat by Pulse Oximetry (%) 93 L 04/27/19 09:00 Intake & Output 04/24/19 04/25/19 04/26/19 04/27/19 23:59 23:59 23:59 23:59 Intake Total 1430 550 900 Output Total 1200 Balance 230 550 900 Weight 74.559 kg 74.503 kg 74.843 kg 74.389 kg NAD awake and alert neck supple RRR CTA no LE edema CBC, BMP 04/27/19 06:15 04/27/19 06:15 Current Medications Albuterol Sulfate (Ventolin 0.083% Nebulizer Soln -) 1 amp NEB Q4H PRN PRN Reason: SHORT OF BREATH/WHEEZING Albuterol/Ipratropium (Duoneb -) 1 amp NEB RQID [facility] Last Admin: 04/27/19 11:47 Dose: 1 amp Heparin Sodium (Porcine) (Heparin -) 5,000 unit SQ TID [facility] Last Admin: 04/27/19 14:48 Dose: 5,000 unit Ceftriaxone Sodium 1 gm/ (Dextrose) 50 mls @ 100 mls/hr IVPB HS [facility]; Protocol Last Admin: 04/26/19 21:45 Dose: 100 mls/hr Azithromycin (Zithromax 500mg Ivpb (Pre-Docked)) 500 mg in 250 mls @ 250 mls/ hr IVPB DAILY [facility] Last Admin: 04/27/19 09:43 Dose: 250 mls/hr Insulin Aspart (Novolog Vial Sliding Scale -) 1 vial SQ ACHS [facility]; Protocol Last Admin: 04/27/19 11:01 Dose: 4 units Latanoprost (Xalatan 0.005% Eye Drops -) 1 drop OU HS [facility] Last Admin: 04/26/19 22:51 Dose: 1 drop Levothyroxine Sodium (Synthroid -) 100 mcg PO DAILY@0700 [facility] Last Admin: 04/27/19 06:58 Dose: 100 mcg Metoprolol Tartrate (Lopressor -) 50 mg PO BID HERNANDEZ Last Admin: 04/27/19 09:43 Dose: 50 mg Impression 1. CISCO 2. nephrolithiasis 3. DM 4. hx htn 5. hypothyroidism 6. r/o sepsis Plan Renal function improving off IVF continue oral intake as tolerated continue abx as per primary team f/u cultures Thank you Willem Gallagher DO
[2019-04-27] MEDS ORDERED: DEXTROSE 5%-WATER - 50 ML IVPB ONE (21:09)
[2019-04-27] MEDS ORDERED: cefTRIAXone SODIUM 1 GM VIAL ONE (21:09)
[2019-04-27] MEDS: LATANOPROST 0.005% OPHTH SOLN 2.5ML BOTTLE OU SCH (21:32)
[2019-04-28] MEDS: INSULIN SLIDING SCALE (NOVOLOG) 1 VIAL SQ SCH ×2 (06:05→11:50)
[2019-04-28] MEDS: LEVOTHYROXINE NA 100 MCG TABLET (FP) PO SCH (06:10)
[2019-04-28] MEDS: HEPARIN NA (PORCINE) 5,000 UNITS/ML 1ML VIAL SQ SCH (06:10)
[2019-04-28 07:27] LABS: HEMATOCRIT 36.6 % (32.4-45.2); HEMOGLOBIN 12.1 GM/dL (10.7-15.3); MCH 27.8 pg (25.7-33.7); MCHC 33.1 g/dl (32.0-36.0); MEAN CELL VOLUME 84.2 fl (80-96); MEAN PLT VOLUME 8.8 fl (7.5-11.1); PLATELET COUNT 289 K/MM3 (134-434); RBC 4.35 M/mm3 (3.60-5.2); RDW 15.6 % (11.6-15.6); WHITE BLOOD COUNT 9.3 K/mm3 (4.0-10.0)
[2019-04-28] MEDS: ALBUTEROL SO4 2.5/IPRATROPIUM 0.5 INH SOL 3 ML VIAL.NEB. NEB SCH ×2 (07:38→11:47)
[2019-04-28 07:52] LABS: BLOOD UREA NITROGEN 35.8 mg/dL (7-18); CALCIUM 9.3 mg/dL (8.5-10.1); CREATININE 1.7 mg/dL (0.55-1.3); POTASSIUM 4.3 mmol/L (3.5-5.1)
--- NOTE | 2019-04-28 09:47 | DS ---
Physical Exam: SUBJECTIVE: Patient seen and examined She is comfortable has no shortness of breath tolerating well no nausea vomiting. Seen by portable pinch riveter urologist and director of community education. OBJECTIVE: Vital Signs Period Temp Pulse Resp BP Sys/Palacio Pulse Ox Last 24 Hr 97.2 F-98.4 F 79-95 18-20 117-138/61-79 93 PHYSICAL EXAM GENERAL: The patient is awake, alert, and fully oriented, in no acute distress. HEAD: Normal with no signs of trauma. EYES: PERRL, extraocular movements intact, sclera anicteric, conjunctiva clear. ENT: Ears normal, nares patent, oropharynx clear without exudates, moist mucous membranes. NECK: Trachea midline, full range of motion, supple. LUNGS: Bilateral scattered rales no wheezing. HEART: Regular rate and rhythm, S1, S2 without murmur, rub or gallop. ABDOMEN: Soft, nontender, nondistended, normoactive bowel sounds, no guarding, no rebound, no hepatosplenomegaly, no masses. EXTREMITIES: 2+ pulses, warm, well-perfused, no edema. NEUROLOGICAL: Cranial nerves II through XII grossly intact. Normal speech, gait not observed. PSYCH: Normal mood, normal affect. SKIN: Warm, dry, normal turgor, no rashes or lesions noted. LABS Laboratory Results - last 24 hr 04/27/19 04/27/19 04/27/19 06:15 10:59 17:26 WBC Cancelled Corrected WBC (auto) Cancelled RBC Cancelled Hgb Cancelled Hct Cancelled MCV Cancelled MCH Cancelled MCHC Cancelled RDW Cancelled Plt Count Cancelled MPV Cancelled Manual Slide Review Cancelled Platelet Comment Cancelled PTT (Actin FS) Sodium Potassium Chloride Carbon Dioxide Anion Gap BUN Creatinine Est GFR (CKD-EPI)AfAm Est GFR (CKD-EPI)NonAf POC Glucometer 271 130 Random Glucose Calcium 04/27/19 04/28/19 04/28/19 21:04 05:47 06:45 WBC 9.3 Corrected WBC (auto) RBC 4.35 Hgb 12.1 Hct 36.6 MCV 84.2 MCH 27.8 MCHC 33.1 RDW 15.6 Plt Count 289 MPV 8.8 Manual Slide Review Platelet Comment PTT (Actin FS) Sodium Potassium Chloride Carbon Dioxide Anion Gap BUN Creatinine Est GFR (CKD-EPI)AfAm Est GFR (CKD-EPI)NonAf POC Glucometer 185 148 Random Glucose Calcium 04/28/19 04/28/19 06:45 06:45 WBC Corrected WBC (auto) RBC Hgb Hct MCV MCH MCHC RDW Plt Count MPV Manual Slide Review Platelet Comment PTT (Actin FS) 32.2 Sodium 139 Potassium 4.3 Chloride 105 Carbon Dioxide 25 Anion Gap 8 BUN 35.8 H Creatinine 1.7 H Est GFR (CKD-EPI)AfAm 35.05 Est GFR (CKD-EPI)NonAf 30.24 POC Glucometer Random Glucose 148 H Calcium 9.3 HOSPITAL COURSE: -year-old female with past medical hypertension diabetes kidney stone hypothyroidism presented to ER with the complaints of she went for kidney stone stent and she was found to be tachycardic and hypoxic. She was admitted to the hospital. Start her oxygen and antibiotic and she improved with oxygen. See had a chest CAT scan done which showed patchy consolidation with within both lungs and most pronounced within the left lower lobe there is a suspicion of diffuse pneumonitis. Patient was started on IV antibiotic Zithromax ceftriaxone she is improved she has no more symptoms at this time. No shortness of breath she she is walking well I did pre-and post oxygen level in the hospital she was not hypoxic. So she is going home on her regular medication plus Ceftin 5 mg twice a for 10 more days she is already finished Zithromax 3 days in the hospital. He is going to follow-up with her primary care doctor for further work-up if necessary. Also she is going to follow the urologist for removal of her stent. Date of Admission:04/24/19 Date of Discharge: 04/28/19 Minutes to complete discharge: 30 Discharge Summary Problems reviewed: Yes Reason For Visit: URETERAL STONE Current Active Problems CISCO (acute kidney injury) (Acute) HTN (hypertension) (Acute) Hypoxia (Acute) Pneumonia (Acute) - Instructions Diet, Activity, Other Instructions: regular diet. follow up next week in the office for stent removal. [phone] Advised her to follow-up with her primary care doctor for pulmonary fibrosis. Disposition: HOME - Home Medications Comprehensive Discharge Medication List: Ambulatory Orders Clindamycin 1% Gel [Cleocin *Gel*] 1 applic TP DAILY 04/23/19 Fluticasone Furoate [Arnuity Ellipta] 50 mcg IH DAILY 04/23/19 Levothyroxine [Synthroid -] 100 mcg PO DAILY 04/23/19 Lisinopril 20 mg PO DAILY 04/23/19 Metformin HCl [Glucophage] 1,000 mg PO BID 04/23/19 Metoprolol Tartrate 50 mg PO BID 04/23/19 Polyvinyl Alcohol [Tears Again] 15 ml OP DAILY 04/23/19 Cefuroxime Axetil [Ceftin -] 500 mg PO Q12H #20 tablet 04/28/19 Insulin Sliding Scale [Novolog Vial Sliding Scale -] 1 vial SQ ACHS units 04/27 Latanoprost 0.005% Eye Drops [Xalatan 0.005% Eye Drops -] 1 drop OU HS drops This patient is new to me today: Yes Date on this admission: 04/28/19 Emergency Visit: No Critical Care patient: No - Discharge Referral Referred to [facility] No
[2019-04-28] MEDS: AZITHROMYCIN IVPB 500 MG/250 ML BAG IVPB SCH (10:03)
[2019-04-28] MEDS: METOPROLOL TARTRATE 50 MG TABLET (FP) PO SCH (10:03)
[2019-04-28 13:17] VITALS: BP 145/78; PULSE 78; TEMP 98.6
== END 2019-04-28 14:16 | disposition home or self-care (01) | DRG 987 ==
LOC: JASU-SURG 09:12 → JERBED 14:52 → J5S 17:32 → J4W 20:27
PROVIDERS: ADMIT Urology; ATTEND Internal Medicine
PROC: 0T768DZ Dilation of Right Ureter with Intraluminal Device, Via Natural or Artificial Opening Endoscopic (ICD-10-PCS; 2019-04-24)
PROC: BT1DYZZ Fluoroscopy of Right Kidney, Ureter and Bladder using Other Contrast (ICD-10-PCS; 2019-04-24)
PROC: 0TC68ZZ Extirpation of Matter from Right Ureter, Via Natural or Artificial Opening Endoscopic (ICD-10-PCS; principal; 2019-04-24 11:00)
DX: J95.89 Other postprocedural complications and disorders of respiratory system, not elsewhere classified (principal); J69.0 Pneumonitis due to inhalation of food and vomit; I97.191 Other postprocedural cardiac functional disturbances following other surgery; N17.9 Acute kidney failure, unspecified; J98.11 Atelectasis; N13.2 Hydronephrosis with renal and ureteral calculous obstruction; N99.89 Other postprocedural complications and disorders of genitourinary system; R09.02 Hypoxemia; E03.9 Hypothyroidism, unspecified; I10 Essential (primary) hypertension; E66.9 Obesity, unspecified; Z68.33 Body mass index [BMI] 33.0-33.9, adult; E11.22 Type 2 diabetes mellitus with diabetic chronic kidney disease; N18.9 Chronic kidney disease, unspecified; Y83.8 Other surgical procedures as the cause of abnormal reaction of the patient, or of later complication, without mention of misadventure at the time of the procedure; I12.9 Hypertensive chronic kidney disease with stage 1 through stage 4 chronic kidney disease, or unspecified chronic kidney disease
CPT/HCPCS: 36415; 71045-TC-FY; 71250-TC; 74018-TC-FY; 76000-TC-FY; 76775-TC; 80048; 80053; 81003; 82436; 82565; 82947; 82962; 83036; 83735; 83880; 84133; 84300; 84443; 84484; 85025; 85027; 85379; 85610; 85730; 87040; 87804; 93005; 93010; 93306-TC; 93970-TC; 94640; 94760; 94761; 97116-GP; J0131; J1644